=== PATIENT | female | born 1995 | race Two or more races ===

== ENCOUNTER 2025-08-10 13:52 | Emergency (ER) | payer MEDICAID, OTHER ==
[~2025-08-10] VITALS: Ht 172.7 cm; Wt 116.6 kg
--- NOTE | 2025-08-10 17:01 | DVH ---
CLINICAL INDICATION: Trauma TECHNIQUE: XY L FOOT 3 VIEW XRAY, XY L TIB FIB XRAY Comparison: XY L TIB FIB XRAY on DOS: 08/10/25, XR TIB FIB LT on DOS: 08/03/25 FINDINGS/IMPRESSION: : Minimally displaced fracture of the proximal fibula. Mildly displaced fracture of the posterior malleolus of the distal tibia. Subtle cortical irregularity of the base of the 1st metatarsal. This may represent artifact versus s ubtle nondisplaced fracture. Recommend correlation with point tenderness.
--- NOTE | 2025-08-10 17:44 | ED.PDOC ---
Musculoskeletal HPI Comments This patient is a pleasant but severely morbidly obese 29-year-old female who arrives to the ED today for evaluation of left lower leg concerns. Patient was seen and Jacky betancourt on 08/03 and diagnosed with a proximal fibular fracture at that time. Patient was placed in a long left leg posterior splint and advised to follow up with the primary care provider. Patient arrives today with concerns of additional fractures as well as foot swelling. Patient states pain is well controlled with the moment. Patient's splint is in disarray and poorly placed. Patient is a mildly tachycardic at arrival. Chief Complaint: Lower Extremity Time Seen by MD: 15:41 Reviewed Notes: Nurses Notes Allergies: Coded Allergies: NO KNOWN ALLERGIES (Unverified , 08/10/25) Information Source: Patient Mode of Arrival: Ambulatory Location: Left Extremity Location: Leg Timing: Days Prehospital treatment: Treatment Severity: Moderate Able to Move Extremity: No Bear Weight: No Pain: Mild Hand Dominance: Right Mechanism: Twisting Circumstances: Fall Onset of Symptoms: After Trauma Symptoms: Swelling, Pain DVT Risk Factors: NONE Past Medical History Past Medical History (Other): Patient was recently diagnosed with a left proximal fibular fracture 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 History Family History Family History: Reviewed,noncontributory to illness, No family hx of Cancer, No family hx of DM, No family hx of Heart ingrid, No family hx of HTN, No family hx ofKidney ingrid, No family hx of Liver ingrid, No family hx of Lung ingrid, No family hx of Stroke Social History Smoker: Non-Smoker Alcohol: Denies ETOH Use Drugs: Denies Drug Use Lives In: Home Constitutional: denies: chills, diaphoresis, fatigue, fever, malaise, sweats, weakness, others EENTM: denies: blurred vision, double vision, ear bleeding, ear discharge, ear drainage, ear pain, ear ringing, eye pain, eye redness, hearing loss, mouth pain, mouth swelling, nasal discharge, nose bleeding, nose congestion, nose pain, photophobia, tearing, throat pain, throat swelling, voice changes, others Respiratory: denies: cough, hemoptysis, orthopnea, SOB at rest, shortness of breath, SOB with excertion, stridor, wheezing, others Cardiovascular: denies: chest pain, dizzy spells, diaphoresis, Dyspnea on exertion, edema, irregular heart beat, left arm pain, lightheadedness, palpitations, PND, syncope, others Gastrointestinal: denies: abdomen distended, abdominal pain, blood streaked bowels, constipated, diarrhea, dysphagia, difficulty swallowing, hematemesis, melena, nausea, poor appetite, poor fluid intake, rectal bleeding, rectal pain, vomiting, others Genitourinary: denies: abnormal vagina bleeding, burning, dyspareunia, dysuria, flank pain, frequency, hematuria, incontinence, pain, , vagina discharge, urgency, others Neurological: denies: dizziness, fainting, headache, left sided numbness, left sided weakness, numbness, paresthesia, pre-existing deficit, right sided numbness, right sided weakness, seizure, speech problems, tingling, tremors, weakness, others Musculoskeletal: reports: others (Lower extremity pain and swelling.); denies: back pain, gout, joint pain, joint swelling, muscle pain, muscle stiffness, neck pain Integumetry: denies: bruises, change in color, change in hair/nails, dryness, laceration, lesions, lumps, rash, wounds, others Allergic/Immunocompromised: denies: Difficulty Healing, Frequent Infections, Hives, Itching, others Hematologic/Lymphatic: denies: anemia, blood clots, easy bleeding, easy bruising, swollen glands, others Endocrine: denies: excessive hunger, excessive sweating, excessive thirst, excessive urination, flushing, intolerance to cold, intolerance to heat, unexplained weight gain, unexplained weight loss, others Psychiatric: denies: anxiety, bipolar disorder, depression, hopeless, panic disorder, schizophrenia, sleepless, suicidal, others Physical Exam General Appearance: Mild Distress (Patient is a moderate distress due to concerns related to her left lower extremity fracture.), Obese HEENT: Normal ENT Inspection, Pharynx Normal, TMs Normal Neck: Full Range of Motion, Non-Tender, Normal, Normal Inspection Respiratory: Chest Non-Tender, Lungs Clear, No Accessory Muscle Use, No Respiratory Distress, Normal Breath Sounds Cardiovascular: No Edema, No JVD, No Murmur, No Gallop, Normal Peripheral Pulses, Regular Rate/Rhythm Breast Exam: Deferred Gastrointestinal: Non Tender, No Pulsatile Mass, Normal Bowel Sounds, Soft Genitalia: Deferred Pelvic: Deferred Rectal: Deferred Extremities: Other (Patient has a long poorly placed and shabby left lower extremity posterior splint in place. Appreciation of the left foot reveals some edema without ecchymosis. No signs of infection.) Neurologic: Alert Cerebellar Function: NOT DONE Reflexes: NOT DONE Skin: Dry, Normal Color, Warm Lymphatic: No Adenopathy Was a procedure done? Was a procedure done?: No Differential Diagnosis EXT Differential Diagnosis: Fracture, Sprain, Strain, Other (Splint replacement, foot fracture) X-Ray, Labs, Meds, VS Vital Signs Date Time Temp Pulse Resp B/P (MAP) Pulse Ox O2 Delivery O2 Flow Rate FiO2 08/10/25 14:00 97.5 103 16 121/79 99 97.5 X-Ray, Labs, Meds, VS Comment All studies performed the ED were evaluated by me personally. Imaging studies confirmed the proximal fibular fracture of the left lower extremity as well as a distal tibial fracture. Additional findings of a possible 1st metatarsal fracture are noted. Patient's splint will be replaced and patient has been advised to maintain follow up appointment with orthopedics for cast placement. Advised patient to share imaging information gleaned today with the orthopedist. Time of 1ST Reevaluation: 17:42 Reevaluation 1ST: Improved Consultation: PCP, Other (Orthopedist) Patient Education/Counseling: Diagnosis, Treatment Family Education/Counseling: Diagnosis, Treatment Sepsis Recent Procedure: No On Antibiotic Therapy: No Respiratory Rate >20: No Heart Rate >90: No Temp<36 C (96.8 F) or >38.3 C: No SBP <90 or MAP <65 mmHG: No New Acute Mental Status Change: No Is the patient on CPAP, BIPAP,: No IV fluid given: No Departure 1 Departure Time of Disposition: 17:43 Impression: Primary Impression: Fracture of left proximal fibula Additional Impressions: Closed fracture of left distal tibia Fracture of first metatarsal bone of left foot Disposition: 01 HOME / SELF CARE / HOMELESS Condition: Stable Additional Instructions: Advised patient maintain follow up appointment with orthopedist for cast placement as scheduled. Pain medication as needed. Discharged With: Self, Friend Critical Care Note Critical Care Time?: No Stability Stability form required: No Heart Score Heart Score: Heart Score Response (Comments) Value History N/A 0 EKG N/A 0 Age N/A 0 Risk Factors N/A 0 Troponin N/A 0 Total 0 LYNNE LUCAS PAC Aug 10, 2025 17:44
[2025-08-10 18:05] VITALS: BP 135/69; PULSE 77; RESP 18; TEMP 97.7; O2SAT 98
== END 2025-08-10 18:17 | disposition home or self-care (01) ==
LOC: ER 13:52
DX: S82.832A Other fracture of upper and lower end of left fibula, initial encounter for closed fracture (principal); S92.312A Displaced fracture of first metatarsal bone, left foot, initial encounter for closed fracture; S82.302A Unspecified fracture of lower end of left tibia, initial encounter for closed fracture; Z79.899 Other long term (current) drug therapy; X58.XXXA Exposure to other specified factors, initial encounter; Y93.89 Activity, other specified; Y92.89 Other specified places as the place of occurrence of the external cause; Y99.8 Other external cause status
CPT/HCPCS: 29515; 73590; 73630